=== PATIENT | male | born 1970 | race Caucasian/White ===

== ENCOUNTER 2023-12-13 11:30 | Emergency (ER) | payer BC, SELFPAY ==
[2023-12-13 11:32] VITALS: BP 167/101
--- NOTE | 2023-12-13 12:47 | ED.GENMED ---
History of Present Illness
General
Chief Complaint: Male Genito-Urinary Symptoms
Time Seen by Provider: 12/13/23 11:46
History of Present Illness
History of Present Illness:
53-year-old male with history of hyperlipidemia presenting to the emergency department for right testicular pain. Patient reports symptoms for the past 2-1/2 weeks. Denies any known inciting injury or trauma. Reports similar symptoms a few years
ago, however resolved on its own. Denies any urinary complaints. Denies any concern for STD. Does note that pain travels up to the inguinal region, and has had some right-sided flank pain as well. Denies any known history of kidney stones.
Denies chest pain or difficulty breathing. Denies fever. Denies additional acute medical complaint
Phy Exam
Physical Exam
Physical Exam:
General: Well-appearing, no clinical signs of dehydration, nontoxic and in no acute distress
HEENT: protecting airway
Neck: appears supple
CV: Normal heart rate, regular rhythm, no evidence of cyanosis
Resp: No accessory muscle use, no increased work of breathing, lungs clear to auscultation bilaterally
Abd: Soft and non-distended, no tenderness to palpation, normal bowel sounds
Extremities: No deformities, no swelling, no erythema, pulses and sensation intact
Neuro: alert, no focal neurologic deficit
: Normal appearance of the testicles with mild tenderness to the right testicle, normal lie. No erythema or swelling. Normal appearance of the penis.
Rectal: deferred
Psych: Normal affect
Skin: Intact
Course
Orders/Labs/Results
Orders:
Orders
12/13/23 11:37
US Scrotum Urgent
Comment:
Reason For Exam: testicular pain
12/13/23 12:18
Ketorolac [Toradol] 15 mg IV NOW STA
12/13/23 12:19
CT Abd/pel Without Iv Or Oral Urgent
Comment:
Reason For Exam: R-flank and testicle pain, suspect stone
12/13/23 12:26
Basic Metabolic Panel Urgent
Urine Culture Reflexed from UA [Urinalysis Reflex To Culture] Urgent
Date Specimen was Collected: 12/13/23
Time Specimen was Collected: 11:40
12/13/23 15:05
Complete Blood Count/With Diff Urgent
Abnormal Lab Results
12/13/23
12:26
Glucose 110 H mg/dl
(70-99)
12/13/23 12:26
Vital Signs
Initial and Last Documented VS:
Initial Vital Signs
Temp Pulse Resp BP Pulse Ox
98.0 F 89 16 167/101 100
12/13/23 11:32 12/13/23 11:32 12/13/23 11:32 12/13/23 11:32 12/13/23 11:32
Last Documented Vital Signs
Temp Pulse Resp BP Pulse Ox
98.0 F 89 16 167/101 100
12/13/23 11:32 12/13/23 11:32 12/13/23 11:32 12/13/23 11:32 12/13/23 11:32
MDM/Problems Addressed
MDM/Problems Addressed:
53-year-old male with history of hyperlipidemia presenting for right testicular pain for 2 and half weeks. Vital signs on arrival are significant for hypertension.
On exam, patient is well-appearing, resting comfortably, no acute distress or discomfort. Overall benign examination of the testicles and penis. No significant swelling or erythema. No infectious findings. Lower suspicion for torsion given
testicles, no reported trauma, extended duration of symptoms. Epididymitis versus orchitis is a consideration. Will obtain ultrasound imaging to ensure no acute pathology. No palpation of any inguinal hernias. Nephrolithiasis is also a
consideration, notes that pain travels to the inguinal region, has had some right flank pain as well. For this reason we will obtain laboratory analysis and CT imaging, no prior history of kidney stones. Toradol administered for pain
14:20 - CT without acute pathology. Labs thus far unremarkable. Urine without sign of infection, pending ultrasound
15:50 -ultrasound without acute pathology. At this time unclear etiology of patient's pain, however patient remains hemodynamically stable with pain controlled. Patient has an appointment with urology tomorrow. Advised that he maintain this
appointment. Advised continued ibuprofen as needed for pain. Strict return precautions communicated and patient verbalized understanding
*Critical Care Note
Total Time (30-74mins, 75-104mins- exclusive of procedures): Not Applicable
ED Attending Note
-
Portions of this chart may have been created with voice recognition software.� Occasional wrong word or��sound alike� substitutions may have occurred due to the inherent limitations of voice recognition software.
Discharge Plan
Departure
Prescriptions:
No Action
methylprednisolone [Medrol (Dionicio)] 4 mg tablets,dose pack
See Rx Instructions .ROUTE .COMPLEX Qty: 21 0RF
Rx Instructions:
orally per package directions
Referrals:
Kymberly Monk MD [Family Provider] -
Interventions
Interventions:
*Risk Screen - Suicide Last Done: 12/13/23 11:32
*General Assessment Last Done: 12/13/23 11:32
*Neglect/Abuse Screening Last Done: 12/13/23 11:32
ED- Fall Risk Assessment Last Done: 12/13/23 13:14
*ED COVID-19 Vaccine History Last Done: 12/13/23 11:32
ED-Male Genitourinary Assessment Last Done: 12/13/23 13:14
Discharge Date and Time
Print Language: LATVIAN
[2023-12-13 13:01] LABS: Blood Urea Nitrogen 13 mg/dl (9-20); Calcium 10.1 mg/dl (8.4-10.2); Carbon Dioxide 24 mmol/L (22-30); Chloride 103 mmol/L (98-107); Glucose 110 mg/dl (70-99); Sodium 136 mmol/L (135-145); eGFR > 60.00
[2023-12-13] MEDS: TORADOL 15 MG IV (13:01)
[2023-12-13 13:49] LABS: Urine Albumin Negative (Neg - Trace); Urine Bilirubin Negative (Negative); Urine Character Clear (Clear); Urine Color Yellow; Urine Glucose Negative (Negative); Urine Ketone Negative (Negative); Urine Leukocyte Negative (Negative); Urine Nitrite Negative (Negative); Urine Occult Blood Negative (Negative); Urine Specific Gravity 1.015 (<1.030); Urine Urobilinogen Negative (Neg - 1+)
[2023-12-13 16:02] VITALS: BP 152/88
== END 2023-12-13 16:03 | disposition home or self-care (01) ==
LOC: EMR 11:30
PROVIDERS: Emergency Medicine; EMERGENCY PHYSICIAN Student in an Organized Health Care Education/Training Program; FAMILY PHYSICIAN Internal Medicine
DX: N50.811 Right testicular pain (principal); E78.5 Hyperlipidemia, unspecified
CPT/HCPCS: 99285; 96374; 74176; 76870; 80048; 81003; 93976

== ENCOUNTER → 2024-02-11 10:03 | Outpatient (REF) | payer BC, SELFPAY ==
[2024-02-11 12:06] LABS: ALT (SGPT) 48 U/L (0-50); AST (SGOT) 34 U/L (17-59); Albumin 4.6 g/dl (3.5-5.0); Alkaline Phosphatase 58 U/L (38-126); Blood Urea Nitrogen 13 mg/dl (9-20); Carbon Dioxide 25 mmol/L (22-30); Chloride 102 mmol/L (98-107); Glucose 104 mg/dl (70-99); HDL Cholesterol 49 mg/dl; LDL Cholesterol, Calculated 75 mg/dl; Potassium 4.5 mmol/L (3.5-5.1); Sodium 144 mmol/L (135-145); Total Bilirubin 0.8 mg/dl (0.2-1.3); Total Cholesterol 142 mg/dl (50-199); Total Protein 7.4 g/dl (6.3-8.2); Triglyceride 93 mg/dl (10-149); Very Low Density Lipoprotein 18 mg/dl (0-30); eGFR > 60.00
[2024-02-11 12:11] LABS: PSA, Total - Screen 0.61 ng/ml (0.0-4.0)
[2024-02-11 13:21] LABS: Glycohemoglobin (HgbA1c) 5.3 % (4.0-5.6)
== END ==
LOC: REG 10:03
PROVIDERS: ATTENDING PHYSICIAN Internal Medicine; REFERRING PHYSICIAN Internal Medicine Rheumatology
DX: E78.00 Pure hypercholesterolemia, unspecified (principal); Z12.5 Encounter for screening for malignant neoplasm of prostate; R73.9 Hyperglycemia, unspecified
CPT/HCPCS: 36415; 80053; 80061; 83036; G0103

== ENCOUNTER → 2024-09-16 09:34 | Outpatient (REF) | payer BC, SELFPAY ==
[2024-09-16 11:29] LABS: % Basophils 0.6 % (0-2); % Eosinophils 2.4 % (0-6); % Immature Granulocytes 0.4 % (0-0.5); % Lymphocytes 28.4 % (20.5-51.1); % Monocytes 8.4 % (1.7-9.3); % Neutrophils 59.8 % (42.2-75.2); Absolute Eosinophils 0.2 10^3/uL (0-0.7); Absolute Monocytes 0.6 10^3/uL (0.1-0.6); Absolute Neutrophils 4.2 10^3/uL (1.4-6.5); Hematocrit 46.7 % (39.0-52.0); Hemoglobin 16.3 g/dL (13.0-18.0); Mean Corp Hgb Conc. 34.9 g/dL (33.0-37.0); Mean Corpuscular Hgb 30.3 pg (27.0-31.0); Mean Corpuscular Volume 86.8 fL (80.0-94.0); Mean Platelet Volume 9.3 fL (7.4-10.4); Nucleated Red Blood Cells % 0 % (-); Platelet Count 276 10^3/uL (130-400); Red Blood Cell Count 5.38 10^6/uL (4.70-6.10); Red Cell Dist. Width 12.9 % (11.5-14.5)
[2024-09-16 11:42] LABS: Erythrocyte Sed Rate 2 mm/hour (0-20)
[2024-09-16 11:52] LABS: ALT (SGPT) 45 U/L (0-50); AST (SGOT) 28 U/L (17-59); Albumin 4.9 g/dl (3.5-5.0); Alkaline Phosphatase 57 U/L (38-126); Blood Urea Nitrogen 13 mg/dl (9-20); Calcium 10.3 mg/dl (8.4-10.2); Carbon Dioxide 27 mmol/L (22-30); Chloride 104 mmol/L (98-107); Glucose 105 mg/dl (70-99); HDL Cholesterol 53 mg/dl; LDL Cholesterol, Calculated 77 mg/dl; Potassium 4.6 mmol/L (3.5-5.1); Sodium 142 mmol/L (135-145); Total Bilirubin 0.9 mg/dl (0.2-1.3); Total Cholesterol 153 mg/dl (50-199); Total Protein 7.7 g/dl (6.3-8.2); Triglyceride 115 mg/dl (10-149); Very Low Density Lipoprotein 23 mg/dl (0-30); eGFR > 60.00
[2024-09-16 11:56] LABS: C-Reactive Protein < 5.00 mg/L (0.0-10.00)
[2024-09-16 12:13] LABS: Vitamin D, 25-OH*** 29.7 ng/mL (30-80)
[2024-09-16 14:19] LABS: Glycohemoglobin (HgbA1c) 5.4 % (4.0-5.6)
== END ==
LOC: REG 09:34
PROVIDERS: ATTENDING PHYSICIAN Internal Medicine Rheumatology; FAMILY PHYSICIAN Internal Medicine
DX: E56.9 Vitamin deficiency, unspecified (principal); E88.810 Metabolic syndrome; F41.9 Anxiety disorder, unspecified; M47.814 Spondylosis without myelopathy or radiculopathy, thoracic region; M79.7 Fibromyalgia; E78.00 Pure hypercholesterolemia, unspecified
CPT/HCPCS: 36415; 80053; 80061; 82306; 83036; 85025; 85652; 86140

== ENCOUNTER 2024-11-11 06:30 | Day surgery (SDC) | payer BC, SELFPAY | END 2024-11-11 14:37 | disposition home or self-care (01) | LOC: GI 06:30 | PROVIDERS: ATTENDING PHYSICIAN Internal Medicine Gastroenterology | DX: Z12.11 Encounter for screening for malignant neoplasm of colon (principal); D12.2 Benign neoplasm of ascending colon; K57.30 Diverticulosis of large intestine without perforation or abscess without bleeding; K64.8 Other hemorrhoids; K59.00 Constipation, unspecified; Z86.0100 Personal history of colon polyps, unspecified | CPT/HCPCS: 45380; 88305 ==

== ENCOUNTER → 2025-04-06 10:16 | Outpatient (REF) | payer BC, SELFPAY ==
[2025-04-06 12:13] LABS: Hematocrit 48.6 % (39.0-52.0); Hemoglobin 16.0 g/dL (13.0-18.0); Mean Corp Hgb Conc. 32.9 g/dL (33.0-37.0); Mean Corpuscular Volume 90.3 fL (80.0-94.0); Nucleated Red Blood Cells % 0 % (-); Platelet Count 290 10^3/uL (130-400); Red Cell Dist. Width 12.8 % (11.5-14.5)
[2025-04-06 12:43] LABS: ALT (SGPT) 48 U/L (0-50); AST (SGOT) 28 U/L (17-59); Albumin 4.7 g/dl (3.5-5.0); Alkaline Phosphatase 47 U/L (38-126); Blood Urea Nitrogen 15 mg/dl (9-20); Calcium 9.7 mg/dl (8.4-10.2); Carbon Dioxide 28 mmol/L (22-30); Chloride 100 mmol/L (98-107); Glucose 97 mg/dl (70-99); HDL Cholesterol 52 mg/dl; LDL Cholesterol, Calculated 82 mg/dl; Potassium 4.5 mmol/L (3.5-5.1); Sodium 135 mmol/L (135-145); Total Protein 7.9 g/dl (6.3-8.2); Very Low Density Lipoprotein 21 mg/dl (0-30); eGFR > 60.00
[2025-04-06 13:03] LABS: Vitamin D, 25-OH*** 40.8 ng/mL (30-80)
[2025-04-06 14:43] LABS: C-Reactive Protein < 5.00 mg/L (0.0-10.00)
== END ==
LOC: REG 10:16
PROVIDERS: ATTENDING PHYSICIAN Internal Medicine Rheumatology; FAMILY PHYSICIAN Internal Medicine
DX: E55.9 Vitamin D deficiency, unspecified (principal); F41.9 Anxiety disorder, unspecified; M47.814 Spondylosis without myelopathy or radiculopathy, thoracic region; M79.18 Myalgia, other site; M79.7 Fibromyalgia
CPT/HCPCS: 36415; 80053; 80061; 82306; 85025; 85652; 86140